=== PATIENT | female | born 1975 | race Caucasian/White ===

== ENCOUNTER 2025-03-24 09:22 | Outpatient (OUT) | payer BC, SELFPAY ==
--- NOTE | 2025-03-24 09:31 | CT_ITS ---
The [address] [address] Patient Name: JERMAINE CHAVEZ MRN: [id number] date: 1975 Sex: F Assigned Patient Location: CT Current Patient Location: CT Accession/Order Number: [id number] Exam Date: 03/24/2025 10:29 Report Date: 03/24/2025 10:43 At the request of: [facility]OV[facility] Procedure: CT abdomen pelvis wo/w con CT ABDOMEN AND PELVIS WITHOUT AND WITH CONTRAST COMPARISON: None CLINICAL DATA: Gross hematuria and bladder pressure. Recurrent urinary tract infections and history of benign bladder tumor. Spiral images were obtained through the abdomen and pelvis before and after intravenous administration of 100 mL of Omnipaque 300. This CT exam was performed using one or more following dose reduction techniques: Automated exposure control, adjustment of the mA and/or kV according to patient size, or use of iterative reconstruction technique. Limited cuts through the lung bases show minimal linear scarring or atelectasis on the left. There is a tiny hiatal hernia. The kidneys are within normal limits for size, position and contour. On the reported without images, there is mild hyperdensity within the collecting systems on both sides. This was discussed with the registered vascular technologist (rvt) and prior to imaging, she tested the IV. Therefore, this is thought to be contrast rather than bilateral staghorn calculi. There are no ureteral or bladder stones. On the postcontrast images, the renal nephrograms are symmetric. No hydronephrosis is seen. The ureters are segmentally opacified down to the bladder. No bladder abnormalities are noted. No calcified gallstones are noted. No intrahepatic masses are seen. The spleen, pancreas and adrenal glands show no acute findings. The abdominal aorta is normal caliber and there is a small amount of atherosclerotic plaque. There are a few tiny lymph nodes. No ascites is seen. The small bowel loops are not disproportionately distended. Mild air and stool are visualized along the colon. There are left-sided colonic diverticula. Levoscoliotic curvature is noted. There is an artificial disc at the lumbosacral junction with associated streak artifact. Images through the pelvis show nondistended small bowel. The appendix is not discretely seen. There is mild air and stool at the distal colon. There are additional descending and sigmoid diverticula, without associated active inflammation. The uterus appears to be surgically absent. There is no ascites. CT/CT abdomen pelvis wo/w con IMPRESSION: NO OBSTRUCTIVE UROPATHY OR OBVIOUS STONE DISEASE WITHIN LIMITS OF CONTRAST ON THE WITHOUT SERIES. NO URINARY BLADDER ABNORMALITIES. DIVERTICULOSIS. NO ACUTE FINDINGS. Impression dictated by: Sylvie Ratliff M.D. 03/24/2025 10:43 AM Dictation Location: [place] [address] Electronically authenticated by: [id number] Y Date: 03/24/2025 10:43
== END 2025-03-24 09:23 | disposition home or self-care (01) ==
LOC: CT 09:26
PROVIDERS: PCP Family Medicine; Visit Provider Student in an Organized Health Care Education/Training Program
DX: R31.0 Gross hematuria (principal); Z86.018 Personal history of other benign neoplasm; K57.90 Diverticulosis of intestine, part unspecified, without perforation or abscess without bleeding
CPT/HCPCS: 74178; Q9967